=== PATIENT | female | born 1965 | race Hispanic/Latino ===

== ENCOUNTER 2024-11-02 11:56 | Emergency (ER) | payer SELFPAY ==
[2024-11-02] MEDS ORDERED: METOCLOPRAMIDE 10 MG/2mL INJ ONE (12:52)
[2024-11-02] MEDS ORDERED: TRAMADOL HCL 50 MG TAB ONE (12:53)
[2024-11-02] MEDS ORDERED: NA CHLORIDE 0.9% 1,000 ML ONE (12:53)
[2024-11-02 13:14] LABS: Absolute Basophils 0.1 K/uL (0-0.5); Absolute Eosinophils 0.1 K/uL (0-0.5); Absolute Lymphocytes (CBC) 1.9 K/uL (0.7-4.9); Absolute Monocytes 0.7 K/uL (0.1-1.3); Absolute Neutrophil 5.7 K/uL (1.8-8.0); Basophils % 0.6 % (0-1.3); Eosinophils % 1.3 % (0-4.4); Hematocrit 42.5 % (36.0-45.0); Hemoglobin 14.7 g/dL (12.0-15.0); Lymphocytes % 22.1 % (15.3-44.8); MCH 29.8 pg (27.0-35.0); MCHC 34.6 g/dL (32.0-36.0); MCV 86.3 fL (80-100); MPV 7.9 fL (7.6-11.3); Monocytes % 8.2 % (3.3-12.3); Neutrophils % 67.8 % (41.7-73.7); Platelets 295 thou/uL (152-406); RBC Red Blood Cell Count 4.93 M/uL (3.86-4.86); Red Cell Distribution Width 13.1 % (12.1-15.2)
[2024-11-02 13:23] LABS: PT Prothrombin Time 11.8 SECONDS (10.0-13.0); PTT, Activated Partial Thromb 30.2 SECONDS (24.3-36.9); Protime INR 1.04
[2024-11-02 13:28] LABS: Anion Gap 6.3 mEq/L (5.0-15.0); Potassium 3.3 mEq/L (3.5-5.1)
--- NOTE | 2024-11-02 13:51 | RAD REPORT ---
EXAM: CT Head Brain Wo Cont HISTORY: headache, HTN COMPARISON: None TECHNIQUE: Multiple contiguous axial images were obtained for a CT of the brain without contrast. Sag ittal and coronal reformats were performed. One or more of the following dose reduction techniques were used: Automated exposure control, adjus tment of the mA and kV according to patient size, and iterative reconstruction. Unless otherwise specified, incidental findings do not require dedicated imaging follow-up. FINDINGS: No evidence of hydrocephalus, intracranial hemorrhage, or extra-axial fluid collection. Focus of calcification along the anterior left frontal gyri, with no adjacent signal abnormality, aidan ma, mass effect, could reflect a small vascular calcification versus sequelae of remote infection. The brain is otherwise normal in morphology. The calvarium is intact. The visualized paranasal sinuses and mastoid air cells are essentially clear . IMPRESSION: No evidence of acute intracranial abnormality. Nonspecific left frontal region focus of calcification as above.
--- NOTE | 2024-11-02 14:03 | ER ---
Nurse's Notes [facility] Name: Abby Molina Age: 59 yrs Sex: Female : 1965 Arrival Date: 11/02/2024 Time: 11:56 Bed 9 Private MD: Diagnosis: Headache;Essential (primary) hypertension Presentation: 11/02 12:27 Chief complaint: Patient states: she has been having headaches but today it was worse, iw they took her BP at work and it was high , she was having ears were hurting and eyes were hurting. Coronavirus screen: At this time, the client does not indicate any symptoms associated with coronavirus-19. Ebola Screen: No symptoms or risks identified at this time. Initial Sepsis Screen: Does the patient meet any 2 criteria? No. Patient's initial sepsis screen is negative. Does the patient have a suspected source of infection? No. Patient's initial sepsis screen is negative. Risk Assessment: Do you want to hurt yourself or someone else? Patient reports no desire to harm self or others. 12:27 Method Of Arrival: Ambulatory iw 12:27 Acuity: CONOR 3 iw 12:28 Onset of symptoms was November 02, 2024. iw Triage Assessment: 12:30 Headache History: The patient has had previous headaches and this one is similar to bp previous episodes. General: Appears in no apparent distress. Behavior is calm, cooperative, appropriate for age. Pain: Complains of pain in forehead Pain currently is 2 out of 10 on a pain scale. Pain began 1 day ago. Also complains of no other associated symptoms. EENT: No deficits noted. Neuro: Level of Consciousness is awake, alert, obeys commands, Plant Sprayer are equal bilaterally. Cardiovascular: No deficits noted. Respiratory: No deficits noted. GI: No signs and/or symptoms were reported involving the gastrointestinal system. : No signs and/or symptoms were reported regarding the genitourinary system. Derm: No deficits noted. Musculoskeletal: No deficits noted. Historical: - Allergies: 12:29 No Known Allergies; iw - Home Meds: 12:30 None [Active]; iw - PMHx: 12:30 None; iw - Immunization history:: Adult Immunizations up to date. - Infectious Disease History:: Denies. - Social history:: Smoking status: Patient denies any tobacco usage or history of. - Family history:: not pertinent. - Hospitalizations: : No recent hospitalization is reported. Screenin:29 [facility] ED Fall Risk Assessment (Adult) History of falling in the last 3 months, bp including since admission No falls in past 3 months (0 pts) Confusion or Disorientation No (0 pts) Intoxicated or Sedated No (0 pts) Impaired Gait No (0 pts). [facility] ED Fall Risk Assessment (Adult) Mobility Assist Device Used No (0 pt) Altered Elimination Score/Fall Risk Level 0 - 2 = Low Risk Oriented to surroundings. Abuse screen: Denies threats or abuse. Denies injuries from another. Nutritional screening: No deficits noted. Tuberculosis screening: No symptoms or risk factors identified. Assessment: 14:29 General: Appears in no apparent distress. distressed, Behavior is calm, cooperative, bp appropriate for age. Pain: Complains of pain in forehead. Vital Signs: 12:28 BP 154 / 95; Pulse 80; Resp 16; Temp 97.8; Pulse Ox 100% on R/A; iw 14:28 BP 135 / 75; Pulse 72; Resp 16; Pulse Ox 100% ; bp [place] Coma Score: 14:00 Eye Response: spontaneous(4). Motor Response: obeys commands(6). Verbal Response: rn oriented(5). Total: 15. ED Course: 11:57 Patient arrived in ED. al6 12:00 Cory Yousif MD is Attending Physician. rn 12:28 Triage completed. iw 12:29 Arm band placed on. iw 12:39 Minh Gordon, OREN is Primary Nurse. bp 12:53 CT Head Brain wo Cont In Process Unspecified. EDMS 13:07 Inserted saline lock: 22 gauge in right antecubital area, using aseptic technique. bp Blood collected. Flushed with 10 mL NS. 14:34 Patient has correct armband on for positive identification. bp 14:34 No provider procedures requiring assistance completed. IV discontinued, intact, bp bleeding controlled, No redness/swelling at site. Administered Medications: 13:06 Drug: NS 0.9% IV 500 ml 500 ml IV at 1 bolus once; to be given as a bolus over 30 bp minutes Volume: 500 ml; Route: IV; Rate: 1 bolus; Site: right antecubital; 14:37 Follow up: IV Status: Completed infusion bp 13:06 Drug: metoCLOPramide IVP 10 mg IVP once; over 1 to 2 minutes Route: IVP; Site: right bp antecubital; 14:37 Follow up: Response: No adverse reaction bp 13:06 Drug: traMADol PO 50 mg PO once Route: PO; bp 14:37 Follow up: Response: No adverse reaction bp Medication: 14:29 VIS not applicable for this client. bp Outcome: 14:02 Discharge ordered by . rn 14:34 Discharged to Home w/ Home Health bp 14:34 Condition: stable 14:38 Instructed on the need for transfer, bp 14:39 Patient left the ED. bp Signatures: Dispatcher [employer] EDMarisela Ruiz RN RN iw Nieto, Roman, MD MD rn Peltier, Brian, RN RN bp Landin, Alissa al6
--- NOTE | 2024-11-02 14:03 | EDPHYS ---
Physician Documentation [facility] Name: Abby Molina Age: 59 yrs Sex: Female : 1965 Arrival Date: 11/02/2024 Time: 11:56 Bed 9 Private MD: ED Physician Cory Yousif HPI: 11/02 12:41 This 59 yrs old Female presents to ER via Ambulatory with complaints of rn Headache, High Blood Pressure, Ear Pain. 12:45 The patient complains of pain to the top of head and forehead. The patient describes rn the headache as aching. Onset: The symptoms/episode began/occurred last night. Severity of symptoms: At its worst the pain was moderate, in the emergency department the pain is unchanged. The symptoms are alleviated by nothing. the symptoms are aggravated by nothing. The patient has experienced similar episodes in the past. Patient reports headache since last night. Took Motrin and pain got better. Headache returned this morning. Patient reports is throbbing, top of head, not associated with focal neurological deficit. No chest pain or shortness of breath. Patient states has happened before and was noted to have high blood pressure at the time. PCP never started on blood pressure medication because in the clinic the blood pressure was normal. Patient does have a history of recurrent headaches but has not been diagnosed with migraines. No vision changes. No vomiting. No seizure. No head injury.. Historical: - Allergies: 12:29 No Known Allergies; iw - Home Meds: 12:30 None [Active]; iw - PMHx: 12:30 None; iw - Immunization history:: Adult Immunizations up to date. - Infectious Disease History:: Denies. - Social history:: Smoking status: Patient denies any tobacco usage or history of. - Family history:: not pertinent. - Hospitalizations: : No recent hospitalization is reported. ROS: 12:45 Constitutional: Negative for fever, chills, and weight loss, Neck: Negative for injury, rn pain, and swelling, Cardiovascular: Negative for chest pain, palpitations, and edema, Respiratory: Negative for shortness of breath, cough, wheezing, and pleuritic chest pain, Abdomen/GI: Negative for abdominal pain, nausea, vomiting, diarrhea, and constipation, Back: Negative for injury and pain, MS/Extremity: Negative for injury and deformity, Skin: Negative for injury, rash, and discoloration, Neuro: Positive for headache, negative for focal weakness or numbness. No seizure. Exam: 12:45 Constitutional: This is a well developed, well nourished patient who is awake, alert, rn and in no acute distress. Neck: No meningismus Cardiovascular: Regular rate and rhythm . No pulse deficits. Respiratory: No increased work of breathing, no retractions or nasal flaring. Neuro: Awake and alert, GCS 15, oriented to person, place, time, and situation. Moves all 4 extremities with equal strength. Sensation intact. No facial droop. Vital Signs: 12:28 BP 154 / 95; Pulse 80; Resp 16; Temp 97.8; Pulse Ox 100% on R/A; iw 14:28 BP 135 / 75; Pulse 72; Resp 16; Pulse Ox 100% ; bp [place] Coma Score: 14:00 Eye Response: spontaneous(4). Motor Response: obeys commands(6). Verbal Response: rn oriented(5). Total: 15. MDM: 12:01 Medical Screening Exam initiated rn 14:00 Differential diagnosis: hypertensive headache, intracerebral hemorrhage, migraine, rn neoplasm, tension headache, vasomotor headache. Data reviewed: vital signs, nurses notes, lab test result(s), radiologic studies, CT scan, and as a result, I will discharge patient. Counseling: I had a detailed discussion with the patient and/or guardian regarding the historical points, exam findings, and any diagnostic results supporting the discharge/admit diagnosis, lab results, radiology results, the need for outpatient follow up, to return to the emergency department if symptoms worsen or persist or if there are any questions or concerns that arise at home. Counseling: I had a detailed discussion with the patient and/or guardian regarding the presence of at least one elevated blood pressure reading (>120/80) during this emergency department visit. Special discussion: I have referred the patient to see his PCP for further evaluation of high blood pressure. I discussed with the patient/guardian in detail that at this point there is no indication for admission to the hospital. It is understood, however, that if the symptoms persist or worsen the patient needs to return immediately for re-evaluation. ED course: No acute findings and workup including CT head. Patient feels much better after medication. Discussed hypertension with her and need to follow-up with PCP as well as take blood pressure diary over the next 2 weeks so that her PCP has stated to work off of. Could be having migraines and the pain elevates blood pressure explaining why when she is in the clinic and pain-free her blood pressure seems normal. Could also be surges in blood pressure causing her symptoms. Will discharge home with return precautions and PCP follow-up.. 11/02 12:30 Order name: CBC with Diff; Complete Time: 13:17 rn 11/02 12:30 Order name: Basic Metabolic Panel; Complete Time: 13:29 rn 11/02 12:30 Order name: Protime (+inr); Complete Time: 13:28 rn 11/02 12:30 Order name: Ptt, Activated; Complete Time: 13:28 rn 11/02 12:30 Order name: CT Head Brain wo Cont; Complete Time: 13:55 rn 11/02 12:30 Order name: IV; Complete Time: 13:07 rn Administered Medications: 13:06 Drug: NS 0.9% IV 500 ml 500 ml IV at 1 bolus once; to be given as a bolus over 30 bp minutes Volume: 500 ml; Route: IV; Rate: 1 bolus; Site: right antecubital; 14:37 Follow up: IV Status: Completed infusion bp 13:06 Drug: metoCLOPramide IVP 10 mg IVP once; over 1 to 2 minutes Route: IVP; Site: right bp antecubital; 14:37 Follow up: Response: No adverse reaction bp 13:06 Drug: traMADol PO 50 mg PO once Route: PO; bp 14:37 Follow up: Response: No adverse reaction bp Disposition Summary: 11/02/24 14:02 Discharge Ordered Notes: Location: Home rn Problem: new rn Symptoms: have improved rn Condition: Stable rn Diagnosis - Headache rn - Essential (primary) hypertension rn Followup: rn - With: Private Physician - When: As needed - Reason: Recheck today's complaints, Re-evaluation by your physician Discharge Instructions: - Discharge Summary Sheet rn - General Headache Without Cause rn - Hypertension, Adult rn - Managing Your Hypertension rn Forms: - Medication Reconciliation Form rn - Antibiotic information technology internship - Prescription Opioid Use rn - Patient Portal Instructions rn - Leadership Thank You Letter rn Signatures: Dispatcher [employer] Marisela Arguello RN RN iw Nieto, Roman, MD MD rn Peltier, Brian, RN RN bp Corrections: (The following items were deleted from the chart) : 12:31 CBC+H.LAB.BRZ ordered. EDMS EDMS 12:31 BASIC METABOLIC PANEL+C.LAB.BRZ ordered. EDMS EDMS 12:31 PROTIME (+INR)+COAG.LAB.BRZ ordered. EDMS EDMS : 12:31 PTT, ACTIVATED+COAG.LAB.BRZ ordered. EDMS EDMS
[2024-11-02 14:44] VITALS: TEMP 97.8; O2SAT 100
[2024-11-02 14:46] VITALS: BP 135/75
== END 2024-11-02 14:39 | disposition home or self-care (01) ==
LOC: ER 11:56
DX: R51.9 Headache, unspecified (principal); I10 Essential (primary) hypertension
CPT/HCPCS: 36415; 70450; 80048; 85025; 85610; 85730; J2765; J7030